=== PATIENT | female | born 1980 | race Caucasian/White ===

== ENCOUNTER 2021-08-25 22:33 | Emergency (ER) | payer OTHER ==
[~2021-08-25] VITALS: Ht 167.6 cm; Wt 63.5 kg
[2021-08-26] MEDS ORDERED: PEPCID40 MG PO (04:43)
[2021-08-26] MEDS ORDERED: ZOFRAN8 MG PO (04:43)
[2021-08-26] MEDS ORDERED: CEPHALEXIN250 MG/5 M PO (04:49)
== END 2021-08-26 04:35 | disposition home or self-care (01) ==
LOC: ER 22:33
DX: R11.11 Vomiting without nausea (principal)